=== PATIENT | female | born 1965 | race Hispanic/Latino ===

== ENCOUNTER 2019-07-03 22:56 | Emergency (ER) | payer SELFPAY ==
[2019-07-03] MEDS ORDERED: ETOMIDATE 20 MG/10 ML INJ IV ONE (23:00)
[2019-07-03] MEDS ORDERED: ROCURONIUM 50 MG/5 ML INJ IV ONE (23:00)
--- NOTE | 2019-07-03 23:10 | Consultation ---
History of Present Illness Consult date: 07/03/19 Medications and Allergies Allergies Allergy/AdvReac Type Severity Reaction Status Date / Time No Known Allergies Allergy Unverified 07/03/19 22:58 Assessment and Plan [facility] Tele[facility] Consult Services Date of Service: 07/03/2019 22:42:36 Impression: Intracranial Hemorrhage Comments: patient presented with acute onset right sided weakness and aphasia, head CT shows left hemispheric Intracranial Hemorrhage, not a tPA candidate, will be transferred to facility with neurosurgical expertise. Metrics: Last Known Well: 07/03/2019 22:10:00 [facility] Notification Time: 07/03/2019 22:41:26 Arrival Time: 07/03/2019 22:56:00 Stamp Time: 07/03/2019 22:42:36 Time First Login Attempt: 07/03/2019 22:46:38 Video Start Time: 07/03/2019 22:46:38 Symptoms: slurred speech, right sided weakness NIHSS Start Assessment Time: 07/03/2019 23:08:00 Patient is not a candidate for tPA. Patient was not deemed candidate for tPA thrombolytics because of Current or Previous ICH. Weight Noted by Staff: 60.6 kg Video End Time: 07/03/2019 23:17:27 CT head was reviewed and results were: head CT shows left hemispheric Intracranial Hemorrhage Radiologist was not called back for review of advanced imaging because CTA not obtained ER Physician notified of the decision on thrombolytics management on 07/03/2019 23:12:53 Our recommendations are outlined below. Recommendations: Activate Stroke Protocol Admission/Order Set Stroke/Telemetry Floor Neuro Checks Bedside Swallow Eval DVT Prophylaxis IV Fluids, Normal Saline Head of Bed Below 30 Degrees Euglycemia and Avoid Hyperthermia (PRN Acetaminophen) NPO No Anticoagulation or Antiplatelet therapy Blood pressure management per hospital protocol for Intracranial hemorrhage STAT Neurosurgery consult Plan discussed with ED Physician. Consult inpatient neurology if needed. Lipid Panel to Be Obtained, if Not Done in the Last Three Months Therapies: Physical Therapy, Occupational Therapy, Speech Therapy Assessment When Applicable Dysphaghia Screen: Swallow Evaluation, Bedside NPO Until Swallow Evaluation DVT prophylaxis: SCDs, Pneumatic Compression Disposition: Follow up with Teleneurology Follow up Sign Out: Discussed with Emergency Department Provider History of Present Illness: Patient is a 53 year old Female. Patient was brought by EMS for symptoms of slurred speech, right sided weakness Patient is a(n) 53 years old female, with history of last known well: 22:10 right sided weakness, facial droop and slurred speech. Her brother states 5 minutes before symptom onset she had used speed CT head was reviewed. Last seen normal was within 4.5 hours. There is no history of hemorrhagic complications or intracranial hemorrhage. There is no history of Recent Anticoagulants. There is no history of recent major surgery. There is no history of recent stroke. Examination: BP(142/86), Blood Glucose(137) 1A: Level of Consciousness - Alert; keenly responsive + 0 1B: Ask Month and Age - Aphasic + 2 1C: Blink Eyes & Squeeze Hands - Performs Both Tasks + 0 2: Test Horizontal Extraocular Movements - Forced Gaze Palsy: Cannot Be Overcome + 2 3: Test Visual Paiz - Complete Hemianopia + 2 4: Test Facial Palsy (Use Grimace if Obtunded) - Normal symmetry + 0 5A: Test Left Arm Motor Drift - No Drift for 10 Seconds + 0 5B: Test Right Arm Motor Drift - No Movement + 4 6A: Test Left Leg Motor Drift - No Effort Against [place] + 3 6B: Test Right Leg Motor Drift - No Effort Against [place] + 3 7: Test Limb Ataxia (FNF/Heel-Bonilla) - No Ataxia + 0 8: Test Sensation - Normal; No sensory loss + 0 9: Test Language/Aphasia - Mute/Global Aphasia: No Usable Speech/Auditory Comprehension + 3 10: Test Dysarthria - Mute/Anarthric + 2 11: Test Extinction/Inattention - No abnormality + 0 NIHSS Score: 21 Patient was informed the Neurology Consult would happen via TeleHealth consult by way of interactive audio and video telecommunications and consented to receiving care in this manner. Due to the immediate potential for life-threatening deterioration due to underlying acute neurologic illness, I spent 35 minutes providing critical care. This time includes time for face to face visit via telemedicine, review of medical records, imaging studies and discussion of findings with providers, the patient and/or family. Dr Abhay Mcgregor [facility] Case [id number]
[2019-07-03] MEDS ORDERED: levETIRAcetam 1000 MG/NS 0.75% 1,000 MG/100 ML BAG IV ONE (23:20)
--- NOTE | 2019-07-03 23:30 | Emergency Department Report ---
ED Neuro Deficit HPI - General Chief Complaint: Neuro Symptoms/Deficit Stated Complaint: POSS STROKE Time Seen by Provider: 07/03/19 23:04 Source: patient, family, EMS Mode of arrival: Stretcher Limitations: Altered Mental Status - History of Present Illness Initial Comments: Family reports patient with ground level fall. 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 Reports fam hx brain aneurysms. - Related Data Allergies/Adverse Reactions: Allergies Allergy/AdvReac Type Severity Reaction Status Date / Time No Known Allergies Allergy Verified 07/03/19 23:18 ED Review of Systems ROS: Stated complaint: POSS STROKE Other details as noted in HPI Comment: Unobtainable due to pts medical conditions ED Neuro Physical Exam - General Limitations: Altered Mental Status Suspected Stroke: Yes - NIHSS Assessment Interval: Baseline 1a. Level of Consciousness: arousable/minor stimuli 1b. LOC Questions: answers no questions correctly 1c. LOC Commands: performs 1 task correctly 2. Best Gaze: normal 3. Visual: no visual loss 4. Facial Palsy: normal symmetrical movement 5b. Motor Arm Right: no gravity effort 5a. Motor Arm Left: no drift 6a. Motor Leg Left: some gravity effort 6b. Motor Leg Right: some gravity effort 7. Limb Ataxia: present 1 limb 8. Sensory: normal 9. Best Language: severe aphasia 10. Dysarthria: severe dysarthria 11. Extinction/Inattention: no abnormality Total Score: 16 Stroke Severity: Moderate to Severe Stroke - Other Other exam information: GENERAL: Patient in severe acute distress HEAD: Normocephalic, atraumatic NOSE: No tenderness, discharge, sinus tenderness MOUTH: No erythema, bleeding, exudate HEART: Regular rate and rhythm, no murmur, S1-S2 are auscultated, no edema, pulses are symmetric LUNGS: No respiratory distress. Bilateral breath sounds, No tachypnea, No retractions, No wheezing, rales, rhonchi ABDOMEN: Normal bowel sounds, abdomen soft, no tenderness, no rebound, no guarding, no distention, no masses, no CVA tenderness MUSCULOSKELETAL: Normal joint range of motion, no redness, no swelling, no tenderness NEUROLOGIC: GCS 11 SKIN: Skin is warm and dry, no wounds, no rashes ED Course Vital Signs 07/03/19 07/03/19 07/03/19 23:12 23:16 23:24 Temperature 97.9 F Pulse Rate 99 H 103 H 95 H Respiratory 14 13 18 Rate Blood Pressure 142/86 Blood Pressure 142/86 [Left] O2 Sat by Pulse 100 100 Oximetry 07/03/19 07/03/19 23:30 23:33 Temperature Pulse Rate 96 H Respiratory 14 18 Rate Blood Pressure 146/99 Blood Pressure [Left] O2 Sat by Pulse 95 Oximetry - Lab Data Result diagrams: 07/03/19 23:19 07/03/19 23:19 Lab Results 07/03/19 07/03/19 07/03/19 Range/Units 23:19 23:19 23:19 WBC 6.6 (4.5-11.0) K/mm3 RBC 4.32 (3.65-5.03) M/mm3 Hgb 13.4 (10.1-14.3) gm/dl Hct 39.4 (30.3-42.9) % MCV 91 (79-97) fl MCH 31 (28-32) pg MCHC 34 (30-34) % RDW 13.7 (13.2-15.2) % Plt Count 268 (140-440) K/mm3 PT 12.7 (12.2-14.9) Sec. INR 0.96 (0.87-1.13) APTT 29.5 (24.2-36.6) Sec. Thrombin Time (15.1-19.6) Sec. Sodium 140 (137-145) mmol/L Potassium 3.9 (3.6-5.0) mmol/L Chloride 98.5 (98-107) mmol/L Carbon Dioxide 30 (22-30) mmol/L Anion Gap 15 mmol/L BUN 6 L (7-17) mg/dL Creatinine 0.6 L (0.7-1.2) mg/dL Estimated GFR > 60 ml/min BUN/Creatinine Ratio 10 % Glucose 105 H (65-100) mg/dL Calcium 9.3 (8.4-10.2) mg/dL Troponin T < 0.010 (0.00-0.029) ng/mL 07/03/19 Range/Units 23:19 WBC (4.5-11.0) K/mm3 RBC (3.65-5.03) M/mm3 Hgb (10.1-14.3) gm/dl Hct (30.3-42.9) % MCV (79-97) fl MCH (28-32) pg MCHC (30-34) % RDW (13.2-15.2) % Plt Count (140-440) K/mm3 PT (12.2-14.9) Sec. INR (0.87-1.13) APTT (24.2-36.6) Sec. Thrombin Time 17.5 (15.1-19.6) Sec. Sodium (137-145) mmol/L Potassium (3.6-5.0) mmol/L Chloride (98-107) mmol/L Carbon Dioxide (22-30) mmol/L Anion Gap mmol/L BUN (7-17) mg/dL Creatinine (0.7-1.2) mg/dL Estimated GFR ml/min BUN/Creatinine Ratio % Glucose (65-100) mg/dL Calcium (8.4-10.2) mg/dL Troponin T (0.00-0.029) ng/mL When compared to previous EKG there are: no significant change - Radiology Data Radiology results: report reviewed - Medical Decision Making At 2329 Dr. Keven Bella trauma updated. Request no TXA since patient not taking blood thinners. Reports patient with GCS 11, and request no intubation at this time. Agrees with keppra and nicardipine. Request c-collar. Accepts transfer for further evaluation. [facility] ER secretary bookkeeper reports helicopter unable to fly. Plan transfer patient lights and sirens to [facility]. Critical Care Time: Yes Critical care time in (mins) excluding proc time.: 42 Critical care attestation.: If time is entered above; I have spent that time in minutes in the direct care of this critically ill patient, excluding procedure time. 42 ED Disposition Clinical Impression: Intracranial hemorrhage Fall Qualifiers: Encounter type: initial encounter Qualified Code(s): W19.XXXA - Unspecified fall, initial encounter Disposition: DC/TX-70 ANOTHER TYPE HLTHCARE Is pt being admited?: No Condition: Stable Time of Disposition: 23:32 - Assessment Assessment Interval: Baseline - Level of Consciousness 1a. Level of Consciousness: arousable/minor stimuli - LOC Questions 1b. LOC Questions: answers no questions correctly - LOC Command 1c. LOC Commands: performs 1 task correctly - Best Gaze 2. Best Gaze: normal - Visual 3. Visual: no visual loss - Facial Palsy 4. Facial Palsy: normal symmetrical movement - Motor Arm 5a. Motor Arm Left: no drift 5b. Motor Arm Right: no gravity effort - Motor Leg 6a. Motor Leg Left: some gravity effort 6b. Motor Leg Right: some gravity effort - Limb Ataxia 7. Limb Ataxia: present 1 limb - Sensory 8. Sensory: normal - Best Language 9. Best Language: severe aphasia - Dysarthria 10. Dysarthria: severe dysarthria - Extinction and Inattention 11. Extinction/Inattention: no abnormality - Scoring Total Score: 16 Stroke Severity: Moderate to Severe Stroke
[2019-07-03 23:42] LABS: INR 0.96 (0.87-1.13); Partial Thromboplastin Time 29.5 Sec. (24.2-36.6)
--- NOTE | 2019-07-03 23:42 | Cat Scan Report ---
CT HEAD WITHOUT CONTRAST INDICATION / CLINICAL INFORMATION: neuro deficits <6hrs or sx present upon awakening. TECHNIQUE: All CT scans at this location are performed using CT dose reduction for ALARA by means of automated e xposure control. COMPARISON: None available. FINDINGS: HEMORRHAGE: There is a 3.2 x 2.3 x 3.0 cm hematoma in the left gangliocapsular region involving left putamen with extension up into figueroa radiata. This likely represents a hypertensive hemorrhage. Ther e is no indication of interventricular extension of hemorrhage at this time. There is associated mass effect with compression of the left sylvian fissure and decreased size of the frontal horn and anter ior body of the left lateral ventricle compared to that on the right. EXTRA-AXIAL SPACES: Left sylvian fissure is decreased in size secondary to mass effect due to left ga ngliocapsular hematoma described above. Cortical sulci, sylvian fissures and basilar cisterns have an otherwise unremarkable appearance. VENTRICULAR SYSTEM: There is evidence of mild compression of the frontal horn and anterior body of th e left lateral ventricle. The ventricular system is otherwise of normal size and configuration. CEREBRAL PARENCHYMA: Left gangliocapsular hematoma likely secondary to hypertensive bleed. Periventri cular white matter lucencies noted in both cerebral hemispheres consistent with microvascular ischemi c change. MIDLINE SHIFT OR HERNIATION: There is mass effect associated with the patient's left gangliocapsular hematoma as described above. 2 to 3 mm of [id number] midline shift is noted at the level of the se ptum pellucidum. There is no indication of uncal herniation. CEREBELLUM / BRAINSTEM: Brainstem and cerebellum have an unremarkable appearance. INTRACRANIAL VESSELS:No abnormalities are identified on this noncontrast head CT. ORBITS: visualized portions of the orbits have an unremarkable appearance. SOFT TISSUES of HEAD: No significant abnormality. CALVARIUM: Evaluation of bone windows reveals no abnormalities. PARANASAL SINUSES / MASTOID AIR CELLS: Paranasal sinuses are free from inflammatory mucosal disease. Mastoid air cells are normally pneumatized. IMPRESSION: 1. 3.2 x 2.3 x 3.0 cm hematoma in the left gangliocapsular region likely secondary to hypertensive he morrhage. There is no indication of interventricular extension of hemorrhage. There is mild mass effe ct with compression of the left lateral ventricle and partial effacement of the left sylvian fissure. Between 2 and 3 mm of [id number] midline shift is noted at the septum pellucidum. Critical result: Time of discovery: 2220 Central standard time Notification: I called report of this study to Dr[facility] Sal[facility] of the [facility] kamini rgency department at about 2228 Central standard time Signer Name: Gal Torre MD Signed: 07/03/2019 11:37 PM Workstation Name: [id number]
[2019-07-03 23:43] LABS: BUN/Creatinine Ratio 10; Blood Urea Nitrogen 6 mg/dL (7-17); Calcium 9.3 mg/dL (8.4-10.2); Hemolysis Index 11
[2019-07-03] MEDS ORDERED: niCARdipine 50 MG in SODIUM CHLORIDE 0.9% 250ML 230 ML IV SCH (23:45)
[2019-07-03] MEDS ORDERED: TRANEXAMIC ACID 1,000 MG in SODIUM CHLORIDE 0.9% 100 ML IV NR (23:45)
[2019-07-03 23:54] LABS: Hematocrit 39.4 % (30.3-42.9); Hemoglobin 13.4 gm/dl (10.1-14.3); Mean Corpuscular HGB Conc 34 % (30-34); Mean Corpuscular Volume 91 fl (79-97); Mean Platelet Volume 8.6 fl (6-12); Platelet Count 268 K/mm3 (140-440); Red Blood Count 4.32 M/mm3 (3.65-5.03); Red Cell Distribution Width 13.7 % (13.2-15.2)
--- NOTE | 2019-07-03 23:57 | XRay Report ---
CHEST 1 VIEW, 07/03/2019 11:12 PM CLINICAL INFORMATION/INDICATION: CVA. COMPARISON: None FINDINGS: SUPPORT DEVICES: None. HEART: Cardiac silhouette is normal in size. LUNGS/PLEURA: There is no focal airspace disease or significant pleural effusion. ADDITIONAL FINDINGS: No additional acute findings. IMPRESSION: 1. No evidence of acute cardiopulmonary process. Signer Name: Gisella Good MD Signed: 07/03/2019 11:53 PM Workstation Name: [id number]
[2019-07-04 00:41] VITALS: BP 109/65
[2019-07-04 02:35] LABS: Total Cells Counted 100
[2019-07-04 02:36] LABS: Macrocytosis Few; Platelet Estimate Consistent w Auto
== END 2019-07-04 00:48 | disposition other institution (70) ==
LOC: ED 22:56
DX: I62.9 Nontraumatic intracranial hemorrhage, unspecified (principal); W01.198A Fall on same level from slipping, tripping and stumbling with subsequent striking against other object, initial encounter; Y93.89 Activity, other specified; Y92.89 Other specified places as the place of occurrence of the external cause; Y99.8 Other external cause status
CPT/HCPCS: 36415; 70450; 71045; 80048; 84484; 85007; 85025; 85610; 85670; 85730; 93005; 93010; 96374; 99291; J1953; J7050